=== PATIENT | male | born 1950 | race Caucasian/White ===

== ENCOUNTER 2017-07-04 14:19 | Emergency (ER) | payer BC ==
[~2017-07-04] VITALS: Ht 175.3 cm; Wt 70.7 kg
[2017-07-04 14:37] VITALS: BP 112/64; PULSE 76; RESP 16; TEMP 99; O2SAT 93
[2017-07-04] MEDS ORDERED: VITA1000 PO (15:00)
[2017-07-04] MEDS ORDERED: AMLO5TAB2 PO (15:00)
[2017-07-04] MEDS ORDERED: METO1TAB9 PO (15:00)
[2017-07-04] MEDS ORDERED: OMEP20TA93 PO (15:00)
[2017-07-04] MEDS ORDERED: ESCI20TA PO (15:00)
[2017-07-04] MEDS ORDERED: ASPI-516 CHEW (15:00)
[2017-07-04] MEDS ORDERED: CEPH-460 PO (16:07)
--- NOTE | 2017-07-04 16:07 | PD ---
HPI Chief Complaint: General Weakness Time Seen by Provider: 14:44 Travel History International Travel<30 days: No Contact w/Intl Traveler<30days: No Traveled to known affect area: No History of Present Illness HPI This 66-year-old man who presents the emergency department complaining of urinary changes, weakness, and increasing confusion. History of amyloid angiopathy and Parkinson symptoms. Family states that over the past day or so has had more frequent urination, weakness, difficulty walking, and had an episode of fecal incontinence when he could make it to the bathroom in time. Patient states normally he urinates about 2-3 times per night, does have some trouble with dribbling and incontinence. No history of UTIs. Family states he has had some subjective fevers. 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 past Tetanus Vaccination: Unknown Influenza Vaccination: No Social History Alcohol Use: Yes (rare) Tobacco Use: No Allergies-Medications (Allergen,Severity, Reaction): Coded Allergies: No Known Allergies (Unverified , 07/04/17) Reported Meds & Prescriptions Reported Meds & Active Scripts Active Keflex (Cephalexin) 500 Mg Capsule 500 Mg PO TID Reported Vitamin D-1000 (Cholecalciferol) 1,000 Unit Tab 1,000 Units PO DAILY Omeprazole 20 Mg Tab 20 Mg PO DAILY Amlodipine (Amlodipine Besylate) 5 Mg Tab 5 Mg PO DAILY Aspirin 81 Mg Chew 81 Mg CHEW DAILY Escitalopram (Escitalopram Oxalate) 20 Mg Tab 20 Mg PO DAILY Metoprolol Succinate ER 24 HR (Metoprolol Succinate) 50 Mg Tab 50 Mg PO DAILY Review of Systems Except as stated in HPI: all other systems reviewed are Neg Physical Exam Narrative GENERAL: 66-year-old man, no acute distress. SKIN: Focused skin assessment warm/dry. HEAD: Atraumatic. Normocephalic. CARDIOVASCULAR: Regular rate and rhythm. No murmur appreciated. RESPIRATORY: No accessory muscle use. Clear to auscultation. Breath sounds equal bilaterally. GASTROINTESTINAL: Abdomen soft, non-tender, nondistended. Hepatic and splenic margins not palpable. MUSCULOSKELETAL: No obvious deformities. No clubbing. No edema. NEUROLOGICAL: Awake and alert. No obvious cranial nerve deficits. Motor grossly within normal limits. Normal speech. PSYCHIATRIC: Appropriate mood and affect; insight and judgment normal. Data Data Last Documented VS Vital Signs Date Time Temp Pulse Resp B/P (MAP) Pulse Ox O2 Delivery O2 Flow Rate FiO2 07/04/17 14:37 99.0 76 16 112/64 (80) 93 Orders Orders Urinalysis - C+S If Indicated (07/04/17 14:45) Cath For Specimen (07/04/17 15:31) Labs Laboratory Tests Test 07/04/17 16:00 Urine Collection Type CLEAN CATCH Urine Color DARK-YELLOW Urine Turbidity SLIGHT Urine pH 5.5 Urine Specific [place] GREATER/EQUAL 1.030 Urine Protein 30 mg/dL Urine Glucose (UA) NEG mg/dL Urine Ketones TRACE mg/dL Urine Occult Blood LARGE Urine Nitrite NEG Urine Bilirubin NEG Urine Urobilinogen 1.0 MG/DL Urine Leukocyte Esterase NEG Urine RBC 25-49 /hpf Urine WBC 0-2 /hpf Urine Squamous Epithelial Cells 0-5 /hpf Urine Amorphous Sediment FEW Urine Hyaline Casts 15-19 /lpf Microscopic Urinalysis Comment CULT NOT INDICATED Urine Collection Time 16:00 [facility] Medical Decision Making Medical Screen Exam Complete: Yes Emergency Medical Condition: Yes Interpretation(s) UA: Some blood, dehydration, no infection Differential Diagnosis UTI, confusion, stroke, other Narrative Course Medical decision making 66-year-old man, presents emergency department with urinary changes, subjective fevers, and confusion, suggestive of UTI. Will check UA, if positive treat, otherwise further workup including CT and labs. FINAL: UA shows dehydration but no infection. Discussed checking labs and further evaluation. The patient really does not have any further workup done at this point. He has had small punctate hemorrhages related to his angiopathy in the past. He reports he was told to [facility] there is nothing else to do for that. He overall looks well at this point. They want to get in the car and travel home. Would like to check the sodium but given that or not really agreeable I think it is okay. Recommended increase fluids, and follow-up with his doctor since return home, and return for any worsening symptoms. Diagnosis Primary Impression: Dehydration Patient Instructions: General Instructions Additional Instructions: Drink plenty of fluids. Follow with your primary doctor soon as you returned home. Return to the emergency department for any worsening confusion, fevers, or any other new or worsening symptoms. Med/Other Pt SpecificInfo: Prescription(s) given Disposition: 01 DISCHARGE HOME Condition: Stable Jack Forde MD Jul 04, 2017 16:07
[2017-07-04 16:09] LABS: BLOOD, URINE LARGE (NEG); GLUCOSE,URINE NEG (NEG); KETONE, URINE TRACE mg/dL (NEG); NITRITE,URINE NEG (NEG); PH, URINE 5.5 (5.0-8.5); URINE LEUKOCYTE ESTERASE NEG (NEG)
[2017-07-04 16:15] LABS: BILIRUBIN, URINE NEG (NEG); URINE COLOR DARK-YELLOW (YELLW/STRAW)
[2017-07-04 16:17] LABS: WBC, URINE 0-2 /hpf (0-5)
[2017-07-04 16:18] LABS: AMORPHOUS SEDIMENT, URINE FEW; HYALINE CAST, URINE 15-19 /lpf (RARE); SQUAMOUS EPITHELIAL CELL URINE 0-5 /hpf (0-5)
== END 2017-07-04 16:50 | disposition home or self-care (01) ==
LOC: PHED 14:19
DX: E86.0 Dehydration (principal); I99.9 Unspecified disorder of circulatory system; Z86.73 Personal history of transient ischemic attack (TIA), and cerebral infarction without residual deficits; Z79.82 Long term (current) use of aspirin
CPT/HCPCS: 81001; 99283